=== PATIENT | female | born 1960 | race Caucasian/White ===

== ENCOUNTER 2023-02-04 12:21 | Emergency (ER) | payer MEDICAID ==
[~2023-02-04] VITALS: Ht 170.2 cm; Wt 59.0 kg
[2023-02-04 12:31] VITALS: O2SAT 97
== END 2023-02-04 15:13 | disposition left against medical advice (07) ==
LOC: ER 12:21
DX: Z53.21 Procedure and treatment not carried out due to patient leaving prior to being seen by health care provider (principal)
CPT/HCPCS: A4606; A4663